=== PATIENT | female | born 1960 | race Two or more races ===

== ENCOUNTER → 2017-02-02 | Outpatient (CLI) | payer OTHER ==
--- NOTE | 2017-02-02 15:07 | RAD ---
Indication: Knee pain over the last 6 weeks, worsening. Technique: 2 views of the right knee are submitted for review. No comparison is available. Findings: There is tricompartmental osteoarthritis, mild. There is mild narrowing of the medial compartment. There is no fracture or dislocation. There is no joint effusion. Impression: Mild tricompartmental osteoarthritis.
== END | disposition home or self-care (01) ==
LOC: PMG 12:37
PROVIDERS: ATTEND Nurse Practitioner Family
DX: M17.11 Unilateral primary osteoarthritis, right knee (principal)
CPT/HCPCS: 73560